=== PATIENT | female | born 1990 | race African-American/Black ===

== ENCOUNTER 2019-05-17 08:18 | Inpatient (IN) | payer OTHER ==
[~2019-05-17] VITALS: Ht 167.6 cm; Wt 105.2 kg
[2019-05-17] MEDS ORDERED: SODIUM CHLORIDE 0.9% 1,000 ML IV ONE (08:45)
[2019-05-17 09:13] LABS: BASOPHILS % (AUTO) 0.5 % (0.0-2.0); EOSINOPHILS % (AUTO) 0.3 % (1.0-6.0); HEMATOCRIT 40.9 % (36-46); HEMOGLOBIN 13.2 g/dL (12.0-16.0); LYMPHOCYTES # (AUTO) 1.4 K/uL (1.0-4.8); LYMPHOCYTES % (AUTO) 18.1 % (22.0-44.0); MEAN CORPUSCULAR HEMOGLOBIN 28.5 pg (26.0-34.0); MEAN CORPUSCULAR HGB CONC 32.2 G/dL (31.0-37.0); MEAN CORPUSCULAR VOLUME 89 fL (80-100); MONOCYTES # (AUTO) 0.6 K/uL (0.1-1.0); MONOCYTES % (AUTO) 7.3 % (2.0-9.0); NEUTROPHILS # (AUTO) 5.6 K/uL (1.8-7.7); NEUTROPHILS % (AUTO) 73.8 % (40.0-70.0); PLATELET COUNT (AUTO) 291 K/uL (150-450); RED BLOOD CELL COUNT(AUTO) 4.62 MIL/uL (4.00-5.20); RED CELL DISTRIBUTION WIDTH 16.9 % (11.5-14.5)
[2019-05-17 09:14] LABS: GLUCOSE,POINT OF CARE 105 MG/DL (70-110)
[2019-05-17 09:28] LABS: ANION GAP 25 mmol/L (8-16); CALCIUM, TOTAL 8.6 mg/dL (8.8-10.5); CARBON DIOXIDE 12 mmol/L (22-29); CHLORIDE 98 mmol/L (98-107); CREATININE 0.88 mg/dL (0.60-1.30); GLOMERULAR FILTR. RATE CALC > 60 mL/min (>60); GLUCOSE,RANDOM 85 mg/dL (70-110); POTASSIUM 3.3 mmol/L (3.5-5.1); SODIUM SERUM 135 mmol/L (136-145); UREA NITROGEN, BLOOD 6 mg/dL (7-18)
[2019-05-17 09:30] LABS: APPEARANCE,URINE CLEAR (CLEAR); BILIRUBIN,URINE NEGATIVE (NEGATIVE); GLUCOSE, URINE (UA) NEGATIVE (NEGATIVE); KETONES,URINE 15 mg/dL (NEGATIVE); LEUKOCYTE ESTERASE ,URINE NEGATIVE (NEGATIVE); NITRATE,URINE NEGATIVE (NEGATIVE); OCCULT BLOOD,URINE SMALL (NEGATIVE); PROTEIN,URINE POS 1+ (NEGATIVE); UROBILINOGEN,URINE 0.2 mg/dL (<=1.0)
[2019-05-17 09:34] LABS: AMPHET/METH SCREEN,URINE POSITIVE (NEGATIVE); BARBITURATE SCREEN, URINE NEGATIVE (NEGATIVE); BENZODIAZEPINES SCREEN,URINE NEGATIVE (NEGATIVE); CANNABINOID SCREEN,URINE NEGATIVE (NEGATIVE); COCAINE SCREEN,URINE NEGATIVE (NEGATIVE); METHADONE SCREEN, URINE NEGATIVE (NEGATIVE); OPIATE SCREEN,URINE NEGATIVE (NEGATIVE)
[2019-05-17 09:35] LABS: PHENCYCLIDINE SCREEN,URINE NEGATIVE (NEGATIVE)
[2019-05-17 09:39] LABS: ALANINE AMINOTRANSFERASE 62 U/L (12-78); ALBUMIN 3.7 g/dL (3.4-5.0); ALKALINE PHOSPHATASE 135 U/L (46-116); ASPARTATE AMINOTRANSFERASE 169 U/L (15-37); BILIRUBIN,TOTAL 0.2 mg/dL (0.1-1.0); HCG,QUANTITATIVE < 1 mIU/mL (0-6); TOTAL PROTEIN, SERUM 8.1 g/dL (6.4-8.2)
[2019-05-17 09:40] LABS: BACTERIA,URINE None Seen /HPF (None Seen); WBC,URINE None Seen /HPF (0-5)
[2019-05-17] MEDS ORDERED: LORazepam 2 MG/ML VIAL ONE (09:54)
[2019-05-17] MEDS ORDERED: LevETIRAcetam 1,500 MG in DEXTROSE 5%-WATER 100 ML IV ONE (10:00)
[2019-05-17] MEDS ORDERED: LORazepam 2 MG/ML VIAL IVP ONE (10:00)
[2019-05-17] MEDS ORDERED: 0.9% SODIUM CHLORIDE 10 ML SYRINGE IVP PRN (12:30)
[2019-05-17] MEDS ORDERED: ACETAMINOPHEN 325 MG TABLET PO PRN ×2 (12:30→13:15)
[2019-05-17] MEDS ORDERED: ONDANSETRON HCL 4 MG/2 ML VIAL IVP PRN ×2 (12:30→13:15)
[2019-05-17] MEDS ORDERED: MAGNESIUM HYDROXIDE SUSPENSION 30 ML UDCUP PO PRN (13:15)
[2019-05-17] MEDS ORDERED: HydrALAZINE HCL 20 MG/ML VIAL IVP PRN (13:15)
[2019-05-17] MEDS ORDERED: ZOLPIDEM TARTRATE 5 MG TABLET PO PRN (13:15)
[2019-05-17] MEDS ORDERED: HYDROCODONE/ACETAMINOPHEN 5-325 MG TABLET PO PRN (13:15)
[2019-05-17] MEDS ORDERED: MORPHINE SULFATE 2 MG/ML SYRINGE IVP PRN (13:15)
[2019-05-17] MEDS ORDERED: LORazepam 2 MG/ML VIAL IVP PRN (13:15)
[2019-05-17] MEDS ORDERED: BISACODYL 10 MG RECTAL RECTAL SUPPOSITORY PR PRN (13:15)
[2019-05-17 16:02] VITALS: BP 164/88
[2019-05-17] MEDS: HEPARIN SODIUM,PORCINE 5,000 UNITS/ML VIAL SQ SCH (17:14)
[2019-05-17] MEDS ORDERED: INFLUENZA VIRUS VACCINE QVS 2019-20 (3YR+)/PF 60 MCG/0.5 ML SYRINGE IM ONE (17:30)
[2019-05-17 20:08] VITALS: BP 162/117
[2019-05-17] MEDS ORDERED: LevETIRAcetam 500 MG TABLET PO SCH (21:00)
[2019-05-17] MEDS ORDERED: METOPROLOL TARTRATE 25 MG TABLET PO SCH (21:00)
[2019-05-17] MEDS ORDERED: DOCUSATE SODIUM 100 MG CAPSULE PO SCH (21:00)
[2019-05-17] MEDS ORDERED: LevETIRAcetam 750 MG in DEXTROSE 5%-WATER 100 ML IV SCH (22:00)
[2019-05-18 00:08] VITALS: BP 136/93
[2019-05-18] MEDS: HEPARIN SODIUM,PORCINE 5,000 UNITS/ML VIAL SQ SCH (00:08)
[2019-05-18 04:45] VITALS: BP 142/95
[2019-05-18] MEDS ORDERED: PANTOPRAZOLE SODIUM 40 MG DR TABLET PO SCH (09:00)
== END 2019-05-18 05:35 | disposition left against medical advice (07) | DRG 199 ==
LOC: EMS 08:21 → 5S 14:02
PROVIDERS: ADMIT Internal Medicine; ATTEND Internal Medicine
PROC: 4A00X4Z Measurement of Central Nervous Electrical Activity, External Approach (ICD-10-PCS; principal; 2019-05-18)
DX: I16.0 Hypertensive urgency (principal); G93.41 Metabolic encephalopathy; R56.9 Unspecified convulsions; F10.10 Alcohol abuse, uncomplicated; F15.10 Other stimulant abuse, uncomplicated; E87.6 Hypokalemia; Z79.899 Other long term (current) drug therapy; Z28.21 Immunization not carried out because of patient refusal; Z83.3 Family history of diabetes mellitus; Z82.49 Family history of ischemic heart disease and other diseases of the circulatory system; Z53.29 Procedure and treatment not carried out because of patient's decision for other reasons
CPT/HCPCS: 70450; 70551; 93005; 95816; 99291; G0480; J0712; J1644; J2060; J2405; J7060

== ENCOUNTER 2021-03-24 23:12 | Emergency (ER) | payer MEDICARE, OTHER ==
[~2021-03-24] VITALS: Ht 167.6 cm; Wt 104.5 kg
[2021-03-25] VITALS: BP 129/69
[2021-03-25] MEDS ORDERED: OLANZapine 5 MG TABLET PO ONE
[2021-03-25] MEDS ORDERED: IBUPROFEN 400 MG TABLET PO ONE
[2021-03-25] MEDS ORDERED: LORazepam 1 MG TABLET PO ONE
[2021-03-25 00:31] LABS: BASOPHILS % (AUTO) 1.1 % (0.0-2.0); EOSINOPHILS % (AUTO) 0.6 % (1.0-6.0); HEMATOCRIT 38.5 % (36-46); HEMOGLOBIN 12.3 g/dL (12.0-16.0); LYMPHOCYTES # (AUTO) 2.5 K/uL (1.0-4.8); LYMPHOCYTES % (AUTO) 15.1 % (22.0-44.0); MEAN CORPUSCULAR HEMOGLOBIN 25.1 pg (26.0-34.0); MEAN CORPUSCULAR HGB CONC 31.9 G/dL (31.0-37.0); MEAN CORPUSCULAR VOLUME 79 fL (80-100); MONOCYTES # (AUTO) 0.7 K/uL (0.1-1.0); MONOCYTES % (AUTO) 4.3 % (2.0-9.0); NEUTROPHILS # (AUTO) 13.2 K/uL (1.8-7.7); NEUTROPHILS % (AUTO) 78.9 % (40.0-70.0); PLATELET COUNT (AUTO) 546 K/uL (150-450); RED BLOOD CELL COUNT(AUTO) 4.88 MIL/uL (4.00-5.20); RED CELL DISTRIBUTION WIDTH 14.4 % (11.5-14.5)
[2021-03-25 00:42] LABS: ANION GAP 11 mmol/L (8-16); CALCIUM, TOTAL 9.4 mg/dL (8.8-10.5); CARBON DIOXIDE 27 mmol/L (22-29); CHLORIDE 102 mmol/L (98-107); GLOMERULAR FILTR. RATE CALC > 60 mL/min (>60); GLUCOSE,RANDOM 108 mg/dL (70-110); POTASSIUM 3.8 mmol/L (3.5-5.1); SODIUM SERUM 140 mmol/L (136-145); UREA NITROGEN, BLOOD 6 mg/dL (7-18)
[2021-03-25 00:46] LABS: ALANINE AMINOTRANSFERASE 40 U/L (12-78); ALBUMIN 3.6 g/dL (3.4-5.0); ALKALINE PHOSPHATASE 133 U/L (46-116); ASPARTATE AMINOTRANSFERASE 16 U/L (15-37); BILIRUBIN,TOTAL 0.1 mg/dL (0.1-1.0); TOTAL PROTEIN, SERUM 8.7 g/dL (6.4-8.2)
[2021-03-25 00:57] LABS: FREE T4 (FREE THYROXINE) 1.01 ng/dL (0.76-1.46); HCG,QUANTITATIVE 1 mIU/mL (0-6); THYROID STIMULATING HORMONE 1.68 uIU/mL (0.36-3.74)
== END 2021-03-25 | disposition home or self-care (01) ==
LOC: EMS 23:12
DX: R51.9 Headache, unspecified (principal); F41.9 Anxiety disorder, unspecified
CPT/HCPCS: 36415; 70450; 80053; 84439; 84443; 84702; 85025; 99284; G0480

== ENCOUNTER 2021-03-30 04:09 | Emergency (ER) | payer MEDICARE, OTHER ==
[~2021-03-30] VITALS: Ht 167.6 cm; Wt 100.0 kg
[2021-03-30 04:29] LABS: GLUCOSE,POINT OF CARE 177 MG/DL (70-110)
[2021-03-30] MEDS ORDERED: LORazepam 1 MG TABLET PO ONE (05:00)
[2021-03-30 06:08] VITALS: BP 147/93
== END 2021-03-30 06:15 | disposition home or self-care (01) ==
LOC: EMS 04:12
DX: F41.9 Anxiety disorder, unspecified (principal); F15.10 Other stimulant abuse, uncomplicated; F32.9 Major depressive disorder, single episode, unspecified; F20.9 Schizophrenia, unspecified
CPT/HCPCS: 82962; 99283

== ENCOUNTER 2021-04-24 02:32 | Emergency (ER) | payer MEDICARE, OTHER ==
[~2021-04-24] VITALS: Ht 167.6 cm; Wt 100.0 kg
[2021-04-24 02:37] VITALS: BP 156/89
[2021-04-24] MEDS ORDERED: ESCI-8 PO (02:43)
[2021-04-24] MEDS ORDERED: OLAN10TA74 PO (02:43)
[2021-04-24] MEDS ORDERED: LORazepam 2 MG TABLET PO ONE (03:15)
== END 2021-04-24 04:23 | disposition home or self-care (01) ==
LOC: EMS 02:35
DX: F41.9 Anxiety disorder, unspecified (principal); F20.9 Schizophrenia, unspecified
CPT/HCPCS: 82962; 99283

== ENCOUNTER 2021-04-24 07:29 | Emergency (ER) | payer MEDICARE, OTHER ==
[~2021-04-24] VITALS: Ht 198.1 cm; Wt 100.0 kg
[~2021-04-24 07:29] MED LIST: ESCI-8 PO; OLAN10TA74 PO
[2021-04-24 07:55] VITALS: BP 159/105
== END 2021-04-24 08:45 | disposition home or self-care (01) ==
LOC: EMS 07:32
DX: F41.9 Anxiety disorder, unspecified (principal); E11.9 Type 2 diabetes mellitus without complications; I10 Essential (primary) hypertension; F20.9 Schizophrenia, unspecified
CPT/HCPCS: 99283

== ENCOUNTER 2021-06-19 05:19 | Emergency (ER) | payer OTHER ==
[~2021-06-19] VITALS: Ht 172.7 cm; Wt 111.4 kg
[2021-06-19 06:22] VITALS: BP 141/91
== END 2021-06-19 06:27 | disposition home or self-care (01) ==
LOC: EMS 05:21
DX: F20.9 Schizophrenia, unspecified (principal); I10 Essential (primary) hypertension; E11.9 Type 2 diabetes mellitus without complications; F41.9 Anxiety disorder, unspecified; F17.210 Nicotine dependence, cigarettes, uncomplicated; Z88.8 Allergy status to other drugs, medicaments and biological substances; Z79.899 Other long term (current) drug therapy
CPT/HCPCS: 93005; 99283; 99284

== ENCOUNTER 2021-06-30 00:37 | Emergency (ER) | payer OTHER ==
[~2021-06-30] VITALS: Ht 167.6 cm; Wt 97.7 kg
[2021-06-30] MEDS ORDERED: LORazepam 1 MG TABLET PO ONE (01:45)
[2021-06-30 01:58] VITALS: BP 160/95
== END 2021-06-30 02:06 | disposition home or self-care (01) ==
LOC: EMS 00:38
DX: F41.9 Anxiety disorder, unspecified (principal); R06.02 Shortness of breath; E11.9 Type 2 diabetes mellitus without complications; I10 Essential (primary) hypertension; F20.9 Schizophrenia, unspecified; F17.210 Nicotine dependence, cigarettes, uncomplicated; Z88.8 Allergy status to other drugs, medicaments and biological substances
CPT/HCPCS: 99283

== ENCOUNTER 2021-07-08 00:25 | Emergency (ER) | payer OTHER ==
[~2021-07-08] VITALS: Ht 167.6 cm; Wt 104.5 kg
[2021-07-08 00:46] VITALS: BP 153/94
[2021-07-08] MEDS ORDERED: LORazepam 1 MG TABLET PO ONE (01:00)
== END 2021-07-08 04:02 | disposition home or self-care (01) ==
LOC: EMS 00:28
DX: F41.9 Anxiety disorder, unspecified (principal); I10 Essential (primary) hypertension; E11.9 Type 2 diabetes mellitus without complications; F20.9 Schizophrenia, unspecified; F17.210 Nicotine dependence, cigarettes, uncomplicated; Z88.8 Allergy status to other drugs, medicaments and biological substances; Z79.899 Other long term (current) drug therapy
CPT/HCPCS: 99283

== ENCOUNTER 2021-07-10 04:31 | Emergency (ER) | payer OTHER ==
[~2021-07-10] VITALS: Ht 167.6 cm; Wt 100.0 kg
[2021-07-10] MEDS ORDERED: HYDR-4584 PO (04:41)
[2021-07-10 05:45] LABS: EOSINOPHILS % (AUTO) 1.4 % (1.0-6.0); HEMATOCRIT 34.6 % (36-46); HEMOGLOBIN 11.2 g/dL (12.0-16.0); LYMPHOCYTES # (AUTO) 2.3 K/uL (1.0-4.8); LYMPHOCYTES % (AUTO) 25.7 % (22.0-44.0); MEAN CORPUSCULAR HEMOGLOBIN 24.5 pg (26.0-34.0); MEAN CORPUSCULAR HGB CONC 32.4 G/dL (31.0-37.0); MEAN CORPUSCULAR VOLUME 76 fL (80-100); MONOCYTES # (AUTO) 0.6 K/uL (0.1-1.0); MONOCYTES % (AUTO) 7.1 % (2.0-9.0); NEUTROPHILS # (AUTO) 5.8 K/uL (1.8-7.7); NEUTROPHILS % (AUTO) 64.8 % (40.0-70.0); PLATELET COUNT (AUTO) 385 K/uL (150-450); RED BLOOD CELL COUNT(AUTO) 4.57 MIL/uL (4.00-5.20); RED CELL DISTRIBUTION WIDTH 18.9 % (11.5-14.5)
[2021-07-10 05:56] LABS: ANION GAP 10 mmol/L (8-16); CALCIUM, TOTAL 8.9 mg/dL (8.8-10.5); CARBON DIOXIDE 29 mmol/L (22-29); CHLORIDE 103 mmol/L (98-107); CREATININE 0.69 mg/dL (0.60-1.30); GLOMERULAR FILTR. RATE CALC > 60 mL/min (>60); GLUCOSE,RANDOM 156 mg/dL (70-110); POTASSIUM 3.7 mmol/L (3.5-5.1); SODIUM SERUM 142 mmol/L (136-145); UREA NITROGEN, BLOOD 9 mg/dL (7-18)
[2021-07-10 06:06] LABS: ALANINE AMINOTRANSFERASE 38 U/L (12-78); ALBUMIN 3.6 g/dL (3.4-5.0); ALKALINE PHOSPHATASE 147 U/L (46-116); ASPARTATE AMINOTRANSFERASE 39 U/L (15-37); BILIRUBIN,TOTAL 0.1 mg/dL (0.1-1.0); HCG,QUANTITATIVE < 1 mIU/mL (0-6); TOTAL PROTEIN, SERUM 8.6 g/dL (6.4-8.2)
[2021-07-10 07:22] VITALS: BP 125/79
== END 2021-07-10 08:01 | disposition home or self-care (01) ==
LOC: EMS 04:33
DX: F41.9 Anxiety disorder, unspecified (principal); I10 Essential (primary) hypertension; E11.9 Type 2 diabetes mellitus without complications; F20.9 Schizophrenia, unspecified; F17.210 Nicotine dependence, cigarettes, uncomplicated; Z88.8 Allergy status to other drugs, medicaments and biological substances; Z79.899 Other long term (current) drug therapy
CPT/HCPCS: 71045; 80053; 84484; 84702; 85025; 93005; 99285; 36415-L1; 36415-TC

== ENCOUNTER 2021-09-22 04:29 | Emergency (ER) | payer OTHER ==
[~2021-09-22] VITALS: Ht 167.6 cm; Wt 113.1 kg
[~2021-09-22 04:29] MED LIST changes: +HYDR-4584 PO
[2021-09-22 04:39] VITALS: BP 124/94
[2021-09-22] MEDS ORDERED: ARIP5TAB37 PO (04:46)
[2021-09-22] MEDS ORDERED: LORazepam 1 MG TABLET PO ONE (05:30)
== END 2021-09-22 05:52 | disposition home or self-care (01) ==
LOC: EMS 04:30
DX: F41.9 Anxiety disorder, unspecified (principal); I10 Essential (primary) hypertension; E11.9 Type 2 diabetes mellitus without complications; F20.9 Schizophrenia, unspecified; Z88.8 Allergy status to other drugs, medicaments and biological substances; Z79.899 Other long term (current) drug therapy
CPT/HCPCS: 99283

== ENCOUNTER 2021-10-02 01:23 | Emergency (ER) | payer OTHER ==
[~2021-10-02] VITALS: Ht 167.6 cm; Wt 97.7 kg
[~2021-10-02 01:23] MED LIST changes: +ARIP5TAB37 PO
[2021-10-02] MEDS ORDERED: NALT50TA6 PO (02:37)
[2021-10-02] MEDS ORDERED: ARIP10TA38 PO (02:37)
[2021-10-02 02:46] LABS: GLUCOSE,POINT OF CARE 116 MG/DL (70-110)
[2021-10-02] MEDS ORDERED: IBUP-2070 PO (04:21)
[2021-10-02] MEDS ORDERED: AMOX500C2 PO (04:21)
[2021-10-02] MEDS ORDERED: IBUPROFEN 600 MG TABLET PO ONE (04:30)
[2021-10-02] MEDS ORDERED: AMOXICILLIN TRIHYDRATE 250 MG CAPSULE PO ONE (04:30)
[2021-10-02 04:50] VITALS: BP 135/88
== END 2021-10-02 04:53 | disposition home or self-care (01) ==
LOC: EMS 01:24
DX: H66.91 Otitis media, unspecified, right ear (principal); F41.9 Anxiety disorder, unspecified; E11.9 Type 2 diabetes mellitus without complications; I10 Essential (primary) hypertension; F20.9 Schizophrenia, unspecified; G35 Multiple sclerosis; Z88.8 Allergy status to other drugs, medicaments and biological substances
CPT/HCPCS: 82962; 99283

== ENCOUNTER 2021-12-23 01:01 | Emergency (ER) | payer MEDICARE, OTHER ==
[~2021-12-23] VITALS: Ht 167.6 cm; Wt 113.0 kg
[~2021-12-23 01:01] MED LIST changes: +AMOX500C2 PO; +ARIP10TA38 PO; -ARIP5TAB37 PO; +IBUP-2070 PO; +NALT50TA6 PO
[2021-12-23 02:50] VITALS: BP 142/82
== END 2021-12-23 04:31 | disposition left against medical advice (07) ==
LOC: EMS 01:02
DX: F41.9 Anxiety disorder, unspecified (principal); Z53.21 Procedure and treatment not carried out due to patient leaving prior to being seen by health care provider
CPT/HCPCS: 93005

== ENCOUNTER 2021-12-24 19:19 | Emergency (ER) | payer MEDICARE, OTHER ==
[~2021-12-24] VITALS: Ht 167.6 cm; Wt 113.0 kg
[2021-12-24 21:43] LABS: BASOPHILS % (AUTO) 0.8 % (0.0-2.0); EOSINOPHILS % (AUTO) 0.7 % (1.0-6.0); HEMATOCRIT 36.4 % (36-46); HEMOGLOBIN 11.8 g/dL (12.0-16.0); LYMPHOCYTES # (AUTO) 2.8 K/uL (1.0-4.8); LYMPHOCYTES % (AUTO) 18.3 % (22.0-44.0); MEAN CORPUSCULAR HEMOGLOBIN 25.1 pg (26.0-34.0); MEAN CORPUSCULAR HGB CONC 32.5 G/dL (31.0-37.0); MEAN CORPUSCULAR VOLUME 77 fL (80-100); MONOCYTES % (AUTO) 6.3 % (2.0-9.0); NEUTROPHILS # (AUTO) 11.2 K/uL (1.8-7.7); NEUTROPHILS % (AUTO) 73.9 % (40.0-70.0); PLATELET COUNT (AUTO) 441 K/uL (150-450); RED BLOOD CELL COUNT(AUTO) 4.72 MIL/uL (4.00-5.20); RED CELL DISTRIBUTION WIDTH 15.1 % (11.5-14.5)
[2021-12-24 21:55] LABS: ANION GAP 10 mmol/L (8-16); CALCIUM, TOTAL 9.4 mg/dL (8.8-10.5); CARBON DIOXIDE 27 mmol/L (22-29); CHLORIDE 94 mmol/L (98-107); CREATININE 0.74 mg/dL (0.60-1.30); GLUCOSE,RANDOM 185 mg/dL (70-110); POTASSIUM 3.8 mmol/L (3.5-5.1); SODIUM SERUM 131 mmol/L (136-145); UREA NITROGEN, BLOOD 7 mg/dL (7-18)
[2021-12-24 22:01] LABS: GLOMERULAR FILTR. RATE CALC > 60 mL/min (>60)
[2021-12-24 22:14] LABS: ALANINE AMINOTRANSFERASE 26 U/L (12-78); ALBUMIN 3.8 g/dL (3.4-5.0); ALKALINE PHOSPHATASE 145 U/L (46-116); ASPARTATE AMINOTRANSFERASE 12 U/L (15-37); BILIRUBIN,TOTAL 0.2 mg/dL (0.1-1.0); HCG,QUANTITATIVE < 1 mIU/mL (0-6); TOTAL PROTEIN, SERUM 8.8 g/dL (6.4-8.2)
[2021-12-25 01:45] VITALS: BP 139/87
== END 2021-12-25 03:00 | disposition home or self-care (01) ==
LOC: EMS 19:20
DX: F41.9 Anxiety disorder, unspecified (principal); F32.9 Major depressive disorder, single episode, unspecified; F20.9 Schizophrenia, unspecified; F15.90 Other stimulant use, unspecified, uncomplicated; Z88.8 Allergy status to other drugs, medicaments and biological substances; Z79.899 Other long term (current) drug therapy
CPT/HCPCS: 80053; 84702; 85025; 99283

== ENCOUNTER 2021-12-29 02:43 | Emergency (ER) | payer MEDICARE, OTHER ==
[2021-12-29] MEDS ORDERED: LORazepam 1 MG TABLET PO ONE (04:15)
[2021-12-29 04:44] VITALS: BP 143/91
== END 2021-12-29 04:49 | disposition home or self-care (01) ==
LOC: EMS 02:44
DX: F41.9 Anxiety disorder, unspecified (principal); E66.01 Morbid (severe) obesity due to excess calories; F20.9 Schizophrenia, unspecified; F32.9 Major depressive disorder, single episode, unspecified; F15.90 Other stimulant use, unspecified, uncomplicated; Z86.69 Personal history of other diseases of the nervous system and sense organs; Z88.8 Allergy status to other drugs, medicaments and biological substances
CPT/HCPCS: 93005; 99283

== ENCOUNTER 2021-12-31 03:50 | Emergency (ER) | payer MEDICARE, OTHER ==
[~2021-12-31] VITALS: Ht 167.6 cm; Wt 113.0 kg
[~2021-12-31 03:50] MED LIST changes: -OLAN10TA74 PO
[2021-12-31] MEDS ORDERED: KETOROLAC TROMETHAMINE 30 MG/ML VIAL IVP ONE (04:00)
[2021-12-31] MEDS ORDERED: ONDANSETRON HCL 4 MG/2 ML VIAL IVP ONE (04:00)
[2021-12-31] MEDS ORDERED: FAMOTIDINE 10 MG/ML 2 ML VIAL IVP ONE (04:00)
[2021-12-31] MEDS ORDERED: SODIUM CHLORIDE 0.9% 1,000 ML IV ONE ×3 (04:00→08:30)
[2021-12-31] MEDS ORDERED: IOHEXOL 350 MG/ML 100 ML VIAL ONE (04:51)
[2021-12-31] MEDS ORDERED: SODIUM CHLORIDE 0.9% 100 ML ONE (04:51)
[2021-12-31 05:07] LABS: BASOPHILS % (AUTO) 0.5 % (0.0-2.0); EOSINOPHILS % (AUTO) 0.4 % (1.0-6.0); HEMATOCRIT 34.9 % (36-46); HEMOGLOBIN 11.4 g/dL (12.0-16.0); LYMPHOCYTES # (AUTO) 1.9 K/uL (1.0-4.8); LYMPHOCYTES % (AUTO) 21.8 % (22.0-44.0); MEAN CORPUSCULAR HEMOGLOBIN 24.9 pg (26.0-34.0); MEAN CORPUSCULAR HGB CONC 32.7 G/dL (31.0-37.0); MEAN CORPUSCULAR VOLUME 76 fL (80-100); MONOCYTES # (AUTO) 0.7 K/uL (0.1-1.0); MONOCYTES % (AUTO) 7.4 % (2.0-9.0); NEUTROPHILS # (AUTO) 6.2 K/uL (1.8-7.7); NEUTROPHILS % (AUTO) 69.9 % (40.0-70.0); PLATELET COUNT (AUTO) 348 K/uL (150-450); RED BLOOD CELL COUNT(AUTO) 4.58 MIL/uL (4.00-5.20); RED CELL DISTRIBUTION WIDTH 14.5 % (11.5-14.5)
[2021-12-31 05:30] LABS: LACTIC ACID 2.7 mmol/L (0.4-2.0)
[2021-12-31 05:31] LABS: ALANINE AMINOTRANSFERASE 30 U/L (12-78); ALBUMIN 3.4 g/dL (3.4-5.0); ALKALINE PHOSPHATASE 122 U/L (46-116); ASPARTATE AMINOTRANSFERASE 20 U/L (15-37); BILIRUBIN,TOTAL 0.2 mg/dL (0.1-1.0); CALCIUM, TOTAL 9.2 mg/dL (8.8-10.5); CARBON DIOXIDE 26 mmol/L (22-29); CREATININE 0.83 mg/dL (0.60-1.30); GLUCOSE,RANDOM 304 mg/dL (70-110); HCG,QUANTITATIVE < 1 mIU/mL (0-6); LIPASE 46 U/L (73-393); TOTAL PROTEIN, SERUM 7.9 g/dL (6.4-8.2); UREA NITROGEN, BLOOD 9 mg/dL (7-18)
[2021-12-31 05:36] LABS: GLOMERULAR FILTR. RATE CALC > 60 mL/min (>60)
[2021-12-31 05:40] LABS: ANION GAP 11 mmol/L (8-16); CHLORIDE 95 mmol/L (98-107); POTASSIUM 3.8 mmol/L (3.5-5.1); SODIUM SERUM 132 mmol/L (136-145)
[2021-12-31] MEDS ORDERED: METF-81 PO (11:19)
[2021-12-31 11:45] VITALS: BP 133/86
== END 2021-12-31 12:08 | disposition home or self-care (01) ==
LOC: EMS 03:50
DX: R10.30 Lower abdominal pain, unspecified (principal); E11.65 Type 2 diabetes mellitus with hyperglycemia; E66.01 Morbid (severe) obesity due to excess calories; F32.9 Major depressive disorder, single episode, unspecified; F41.9 Anxiety disorder, unspecified; F15.90 Other stimulant use, unspecified, uncomplicated; N83.202 Unspecified ovarian cyst, left side; N83.201 Unspecified ovarian cyst, right side; R11.0 Nausea
CPT/HCPCS: 99285; 74177; 96374; 96361; 76830; 76856; 96375; 80053; 83036; 83605; 83690; 84702; 85025; 36415; G0480; J3490; J1885; J2405; Q9967; J7030; J7050

== ENCOUNTER 2022-01-21 00:33 | Emergency (ER) | payer MEDICARE, OTHER ==
[~2022-01-21] VITALS: Ht 167.6 cm; Wt 99.1 kg
[~2022-01-21 00:33] MED LIST changes: +METF-81 PO
[2022-01-21] MEDS ORDERED: LORazepam 1 MG TABLET PO ONE (03:15)
[2022-01-21 04:40] VITALS: BP 131/74
== END 2022-01-21 05:49 | disposition home or self-care (01) ==
LOC: EMS 00:34
DX: F41.9 Anxiety disorder, unspecified (principal); E66.01 Morbid (severe) obesity due to excess calories; F32.9 Major depressive disorder, single episode, unspecified; E11.9 Type 2 diabetes mellitus without complications; F20.9 Schizophrenia, unspecified; F15.10 Other stimulant abuse, uncomplicated
CPT/HCPCS: 82962; 93005; 99283

== ENCOUNTER 2022-01-24 04:58 | Emergency (ER) | payer MEDICARE, OTHER ==
[~2022-01-24] VITALS: Ht 167.6 cm; Wt 100.0 kg
[2022-01-24 05:09] VITALS: BP 159/103
== END 2022-01-24 06:38 | disposition left against medical advice (07) ==
LOC: EMS 05:00
DX: Z53.21 Procedure and treatment not carried out due to patient leaving prior to being seen by health care provider (principal)

== ENCOUNTER 2022-01-26 07:25 | Emergency (ER) | payer MEDICARE, OTHER ==
[~2022-01-26] VITALS: Ht 167.6 cm; Wt 99.1 kg
[2022-01-26 07:45] LABS: GLUCOSE,POINT OF CARE 223 MG/DL (70-110)
[2022-01-26] MEDS ORDERED: SODIUM CHLORIDE 0.9% 1,000 ML IV ONE ×2 (07:45→08:30)
[2022-01-26] MEDS ORDERED: LORazepam 2 MG/ML VIAL IVP ONE (07:45)
[2022-01-26 08:02] LABS: BASOPHILS % (AUTO) 0.8 % (0.0-2.0); EOSINOPHILS % (AUTO) 0.4 % (1.0-6.0); HEMATOCRIT 33.8 % (36-46); LYMPHOCYTES # (AUTO) 2.5 K/uL (1.0-4.8); LYMPHOCYTES % (AUTO) 21.9 % (22.0-44.0); MEAN CORPUSCULAR HGB CONC 32.4 G/dL (31.0-37.0); MEAN CORPUSCULAR VOLUME 80 fL (80-100); MONOCYTES # (AUTO) 0.7 K/uL (0.1-1.0); MONOCYTES % (AUTO) 6.2 % (2.0-9.0); NEUTROPHILS # (AUTO) 8.1 K/uL (1.8-7.7); NEUTROPHILS % (AUTO) 70.7 % (40.0-70.0); PLATELET COUNT (AUTO) 357 K/uL (150-450); RED BLOOD CELL COUNT(AUTO) 4.23 MIL/uL (4.00-5.20); RED CELL DISTRIBUTION WIDTH 15.4 % (11.5-14.5)
[2022-01-26 08:13] LABS: ANION GAP 10 mmol/L (8-16); CALCIUM, TOTAL 9.4 mg/dL (8.8-10.5); CARBON DIOXIDE 27 mmol/L (22-29); CHLORIDE 99 mmol/L (98-107); CREATININE 0.52 mg/dL (0.60-1.30); GLUCOSE,RANDOM 215 mg/dL (70-110); POTASSIUM 3.5 mmol/L (3.5-5.1); SODIUM SERUM 136 mmol/L (136-145); UREA NITROGEN, BLOOD 5 mg/dL (7-18)
[2022-01-26 08:15] LABS: GLOMERULAR FILTR. RATE CALC > 60 mL/min (>60)
[2022-01-26 12:56] VITALS: BP 140/88
[2022-01-26] MEDS ORDERED: ESCI20TA87 PO (13:17)
== END 2022-01-26 12:56 | disposition home or self-care (01) ==
LOC: EMS 07:30
DX: R07.89 Other chest pain (principal); F41.9 Anxiety disorder, unspecified; F32.9 Major depressive disorder, single episode, unspecified; E11.9 Type 2 diabetes mellitus without complications; F20.9 Schizophrenia, unspecified; F15.90 Other stimulant use, unspecified, uncomplicated; Z88.6 Allergy status to analgesic agent; Z88.8 Allergy status to other drugs, medicaments and biological substances
CPT/HCPCS: 99285; 96374; 71045; 96361; 80048; 82962; 84484; 85025; 93005; J2060; J7030; 36415-L1; 36415-TC

== ENCOUNTER 2022-08-24 16:17 | Emergency (ER) | payer MEDICARE, OTHER ==
[~2022-08-24] VITALS: Ht 162.6 cm; Wt 90.9 kg
[~2022-08-24 16:17] MED LIST changes: -AMOX500C2 PO; -ESCI-8 PO; +ESCI20TA87 PO; -IBUP-2070 PO
[2022-08-24 16:25] VITALS: BP 156/112
[2022-08-24 16:52] LABS: BASOPHILS % (AUTO) 0.6 % (0.0-2.0); EOSINOPHILS % (AUTO) 0.4 % (1.0-6.0); HEMATOCRIT 36.3 % (36-46); HEMOGLOBIN 11.5 g/dL (12.0-16.0); LYMPHOCYTES # (AUTO) 2.3 K/uL (1.0-4.8); LYMPHOCYTES % (AUTO) 17.4 % (22.0-44.0); MEAN CORPUSCULAR HEMOGLOBIN 23.7 pg (26.0-34.0); MEAN CORPUSCULAR HGB CONC 31.6 G/dL (31.0-37.0); MEAN CORPUSCULAR VOLUME 75 fL (80-100); MONOCYTES # (AUTO) 0.9 K/uL (0.1-1.0); MONOCYTES % (AUTO) 6.4 % (2.0-9.0); NEUTROPHILS # (AUTO) 10.1 K/uL (1.8-7.7); NEUTROPHILS % (AUTO) 75.2 % (40.0-70.0); PLATELET COUNT (AUTO) 447 K/uL (150-450); RED BLOOD CELL COUNT(AUTO) 4.85 MIL/uL (4.00-5.20); RED CELL DISTRIBUTION WIDTH 17.5 % (11.5-14.5)
[2022-08-24 17:00] LABS: ANION GAP 11 mmol/L (8-16); CARBON DIOXIDE 26 mmol/L (22-29); CHLORIDE 101 mmol/L (98-107); CREATININE 0.67 mg/dL (0.60-1.30); GLOMERULAR FILTR. RATE CALC > 60 mL/min (>60); GLUCOSE,RANDOM 111 mg/dL (70-110); POTASSIUM 3.9 mmol/L (3.5-5.1); SODIUM SERUM 138 mmol/L (136-145); UREA NITROGEN, BLOOD 8 mg/dL (7-18)
[2022-08-24] MEDS ORDERED: LORazepam 1 MG TABLET PO ONE (17:00)
[2022-08-24 17:08] LABS: ALANINE AMINOTRANSFERASE 26 U/L (12-78); ALBUMIN 3.7 g/dL (3.4-5.0); ALKALINE PHOSPHATASE 120 U/L (46-116); ASPARTATE AMINOTRANSFERASE 24 U/L (15-37); BILIRUBIN,TOTAL 0.2 mg/dL (0.1-1.0); TOTAL PROTEIN, SERUM 8.2 g/dL (6.4-8.2)
[2022-08-24] MEDS ORDERED: ARIP10TA8 PO (17:50)
== END 2022-08-24 18:03 | disposition home or self-care (01) ==
LOC: EMS 16:18
DX: F41.9 Anxiety disorder, unspecified (principal); F32.A Depression, unspecified; E11.9 Type 2 diabetes mellitus without complications; F20.9 Schizophrenia, unspecified; F15.90 Other stimulant use, unspecified, uncomplicated; Z88.8 Allergy status to other drugs, medicaments and biological substances; Z91.14 Patient's other noncompliance with medication regimen
CPT/HCPCS: 99283; 80053; 85025; G0480

== ENCOUNTER 2022-09-07 21:44 | Inpatient (IN) | payer MEDICARE, OTHER ==
[~2022-09-07] VITALS: Ht 170.2 cm; Wt 97.2 kg
[~2022-09-07 21:44] MED LIST changes: +ARIP10TA8 PO
[2022-09-07] MEDS ORDERED: IOHEXOL 350 MG/ML 100 ML VIAL ONE (21:50)
[2022-09-07] MEDS ORDERED: SODIUM CHLORIDE 0.9% 100 ML ONE (21:50)
[2022-09-07 22:00] LABS: GLUCOMETER DEV NAME(LOC) ERT.5; GLUCOSE,POINT OF CARE 148 MG/DL (70-110)
[2022-09-07 22:20] LABS: BASOPHILS % (AUTO) 0.7 % (0.0-2.0); EOSINOPHILS % (AUTO) 0.4 % (1.0-6.0); HEMATOCRIT 36.5 % (36-46); HEMOGLOBIN 11.4 g/dL (12.0-16.0); LYMPHOCYTES # (AUTO) 2.7 K/uL (1.0-4.8); LYMPHOCYTES % (AUTO) 18.3 % (22.0-44.0); MEAN CORPUSCULAR HEMOGLOBIN 23.2 pg (26.0-34.0); MEAN CORPUSCULAR HGB CONC 31.2 G/dL (31.0-37.0); MEAN CORPUSCULAR VOLUME 74 fL (80-100); MONOCYTES # (AUTO) 0.7 K/uL (0.1-1.0); MONOCYTES % (AUTO) 4.8 % (2.0-9.0); NEUTROPHILS # (AUTO) 11.3 K/uL (1.8-7.7); NEUTROPHILS % (AUTO) 75.8 % (40.0-70.0); PLATELET COUNT (AUTO) 517 K/uL (150-450); RED CELL DISTRIBUTION WIDTH 16.8 % (11.5-14.5)
[2022-09-07 22:29] LABS: INR 1.1 (0.9-1.1); PROTHROMBIN TIME 11.4 SEC (9.4-11.6)
[2022-09-07 22:39] LABS: ANION GAP 14 mmol/L (8-16); CALCIUM, TOTAL 9.6 mg/dL (8.8-10.5); CARBON DIOXIDE 25 mmol/L (22-29); CHLORIDE 99 mmol/L (98-107); CREATININE 0.66 mg/dL (0.60-1.30); GLOMERULAR FILTR. RATE CALC > 60 mL/min (>60); GLUCOSE,RANDOM 153 mg/dL (70-110); POTASSIUM 3.3 mmol/L (3.5-5.1); SODIUM SERUM 138 mmol/L (136-145); UREA NITROGEN, BLOOD 6 mg/dL (7-18)
[2022-09-07 22:43] LABS: ALANINE AMINOTRANSFERASE 24 U/L (12-78); ALBUMIN 3.8 g/dL (3.4-5.0); ALKALINE PHOSPHATASE 115 U/L (46-116); ASPARTATE AMINOTRANSFERASE 13 U/L (15-37); BILIRUBIN,TOTAL 0.2 mg/dL (0.1-1.0); TOTAL PROTEIN, SERUM 8.4 g/dL (6.4-8.2)
[2022-09-07] MEDS ORDERED: LORazepam 1 MG TABLET PO ONE (23:00)
[2022-09-07] MEDS ORDERED: DiphenhydrAMINE HCL 50 MG/ML VIAL IM ONE (23:30)
[2022-09-07] MEDS ORDERED: HALOPERIDOL LACTATE 5 MG/ML VIAL IM ONE (23:30)
[2022-09-07] MEDS ORDERED: LORazepam 2 MG/ML VIAL IM ONE (23:30)
[2022-09-08] MEDS ORDERED: LORazepam 2 MG TABLET PO PRN (02:15)
[2022-09-08] MEDS ORDERED: OLANZapine 5 MG RAPDIS TABLET PO PRN (02:15)
[2022-09-08] MEDS ORDERED: ZOLPIDEM TARTRATE 10 MG TABLET PO PRN (02:15)
[2022-09-08 03:02] LABS: COVID AG,FIA SOURCE NASOPHARYNGEAL
[2022-09-08 05:01] VITALS: BP 136/86
[2022-09-08 10:58] VITALS: BP 133/89
[2022-09-08] MEDS ORDERED: TUBERCULIN, PURIFIED PROTEIN DERIVATIVE 5 TU/0.1 ML SYRINGE ID ONE (11:30)
[2022-09-08] MEDS ORDERED: HydrOXYzine PAMOATE 50 MG CAPSULE PO PRN (11:30)
[2022-09-08] MEDS ORDERED: LOPERAMIDE HCL 2 MG CAPSULE PO PRN (11:30)
[2022-09-08] MEDS ORDERED: GuaiFENesin/D-METHORPHAN [SUGAR-FREE] 200-20MG/10 ML SYRUP UDCUP PO PRN (11:30)
[2022-09-08] MEDS ORDERED: MAGNESIUM HYDROXIDE SUSPENSION 30 ML UDCUP PO PRN (11:30)
[2022-09-08] MEDS ORDERED: MAG HYDROX/AL HYDROX/SIMETH ES 30 ML SUSPENSION UDCUP PO PRN (11:30)
[2022-09-08] MEDS ORDERED: PROMETHAZINE HCL 25 MG TABLET PO PRN (11:30)
[2022-09-08] MEDS ORDERED: ACETAMINOPHEN 325 MG TABLET PO PRN (11:30)
[2022-09-08] MEDS: THIAMINE 100 MG TABLET PO SCH (18:12)
[2022-09-08 20:30] VITALS: BP 108/70
[2022-09-08] MEDS: MELATONIN 5 MG TABLET PO SCH (21:26)
[2022-09-08] MEDS: OLANZapine 5 MG RAPDIS TABLET PO SCH (21:27)
[2022-09-09 06:55] LABS: ANION GAP 7 mmol/L (8-16); CALCIUM, TOTAL 9.5 mg/dL (8.8-10.5); CARBON DIOXIDE 30 mmol/L (22-29); CHLORIDE 102 mmol/L (98-107); CREATININE 0.69 mg/dL (0.60-1.30); GLOMERULAR FILTR. RATE CALC > 60 mL/min (>60); GLUCOSE,RANDOM 141 mg/dL (70-110); POTASSIUM 4.3 mmol/L (3.5-5.1); SODIUM SERUM 139 mmol/L (136-145); UREA NITROGEN, BLOOD 11 mg/dL (7-18)
[2022-09-09 06:57] LABS: HEMOGLOBIN A1C 7.3 % (3.8-5.6)
[2022-09-09 07:08] LABS: CHOL/HDL RATIO 4.1 (3.9-5.7); FREE T4 (FREE THYROXINE) 1.19 ng/dL (0.76-1.46); THYROID STIMULATING HORMONE 1.92 uIU/mL (0.36-3.74)
[2022-09-09] MEDS: MULTIVITAMINS WITH MINERALS, THERAPEUTIC TABLET PO SCH (09:19)
[2022-09-09] MEDS: NALTREXONE HCL 50 MG TABLET PO SCH (09:20)
[2022-09-09] MEDS: OMEGA-3/DHA/EPA/FISH OIL 1,000 MG CAPSULE PO SCH (09:20)
[2022-09-09] MEDS: THIAMINE 100 MG TABLET PO SCH ×2 (09:20→17:06)
[2022-09-09] MEDS: FOLIC ACID 1 MG TABLET PO SCH (09:21)
[2022-09-09 09:57] VITALS: BP 99/60
[2022-09-09] MEDS: MELATONIN 5 MG TABLET PO SCH (21:18)
[2022-09-09] MEDS: OLANZapine 5 MG RAPDIS TABLET PO SCH (21:18)
[2022-09-10] MEDS: NALTREXONE HCL 50 MG TABLET PO SCH (08:39)
[2022-09-10] MEDS: OMEGA-3/DHA/EPA/FISH OIL 1,000 MG CAPSULE PO SCH (08:39)
[2022-09-10] MEDS: THIAMINE 100 MG TABLET PO SCH ×2 (08:39→15:57)
[2022-09-10] MEDS: FOLIC ACID 1 MG TABLET PO SCH (08:40)
[2022-09-10] MEDS: MULTIVITAMINS WITH MINERALS, THERAPEUTIC TABLET PO SCH (08:41)
[2022-09-10 09:43] VITALS: BP 101/60
[2022-09-10 17:15] VITALS: BP 99/69
[2022-09-10] MEDS: MELATONIN 5 MG TABLET PO SCH (20:54)
[2022-09-10 20:57] VITALS: BP 113/76
[2022-09-10] MEDS ORDERED: OLANZapine 10 MG RAPDIS TABLET PO SCH (21:00)
[2022-09-10] MEDS ORDERED: MELA5TAB40 PO (21:08)
[2022-09-10] MEDS ORDERED: OLAN10TA26 PO (21:08)
[2022-09-10] MEDS ORDERED: NALT50TA PO (21:08)
[2022-09-10] MEDS ORDERED: OMEG-135 PO (21:08)
[2022-09-11] MEDS: THIAMINE 100 MG TABLET PO SCH (08:10)
[2022-09-11] MEDS: OMEGA-3/DHA/EPA/FISH OIL 1,000 MG CAPSULE PO SCH (08:10)
[2022-09-11] MEDS: NALTREXONE HCL 50 MG TABLET PO SCH (08:10)
[2022-09-11] MEDS: FOLIC ACID 1 MG TABLET PO SCH (08:10)
[2022-09-11] MEDS: MULTIVITAMINS WITH MINERALS, THERAPEUTIC TABLET PO SCH (08:11)
== END 2022-09-11 12:15 | disposition home or self-care (01) | DRG 885 ==
LOC: EMS 21:44 → 3EX 09-08 03:00
PROVIDERS: ADMIT Psychiatry & Neurology Psychiatry; ATTEND Psychiatry & Neurology Psychiatry
PROC: GZHZZZZ Group Psychotherapy (ICD-10-PCS; principal; 2022-09-08)
PROC: GZ51ZZZ Individual Psychotherapy, Behavioral (ICD-10-PCS; 2022-09-08)
DX: F20.9 Schizophrenia, unspecified (principal); D64.9 Anemia, unspecified; D72.829 Elevated white blood cell count, unspecified; E11.9 Type 2 diabetes mellitus without complications; F32.A Depression, unspecified; F41.1 Generalized anxiety disorder; F60.0 Paranoid personality disorder; I10 Essential (primary) hypertension; F15.10 Other stimulant abuse, uncomplicated; Z20.822 Contact with and (suspected) exposure to COVID-19; D75.839 Thrombocytosis, unspecified; E87.6 Hypokalemia; E66.01 Morbid (severe) obesity due to excess calories; Y90.9 Presence of alcohol in blood, level not specified; F10.11 Alcohol abuse, in remission; J44.9 Chronic obstructive pulmonary disease, unspecified; Z55.9 Problems related to education and literacy, unspecified; Z59.9 Problem related to housing and economic circumstances, unspecified; Z63.9 Problem related to primary support group, unspecified; Z65.3 Problems related to other legal circumstances; Z87.891 Personal history of nicotine dependence; Z88.8 Allergy status to other drugs, medicaments and biological substances; Z72.89 Other problems related to lifestyle; Z79.84 Long term (current) use of oral hypoglycemic drugs; Z68.33 Body mass index [BMI] 33.0-33.9, adult
CPT/HCPCS: 70496; 71045; 80048; 80053; 80061; 82962; 83036; 84439; 84443; 84484; 85025; 85610; 86592; 93005; 99291; G0378; G0480; J1200; J1630; J2060; J7050; Q9967; 36415-L1; 36415-TC; 70450; 70450-TC

== ENCOUNTER 2023-01-27 17:09 | Emergency (ER) | payer MEDICAID, OTHER ==
[~2023-01-27] VITALS: Ht 167.6 cm; Wt 90.9 kg
[~2023-01-27 17:09] MED LIST changes: +AMOX500C2 PO; -ARIP10TA38 PO; -ARIP10TA8 PO; -ESCI20TA87 PO; -HYDR-4584 PO; +IBUP-1493 PO; -METF-81 PO; -NALT50TA6 PO; +OLAN10TA26 PO
[2023-01-27 17:18] VITALS: BP 150/113; PULSE 106; RESP 16; TEMP 100.1
== END 2023-01-27 21:00 | disposition left against medical advice (07) ==
LOC: EMS 17:10
DX: M79.671 Pain in right foot (principal); Z53.21 Procedure and treatment not carried out due to patient leaving prior to being seen by health care provider
CPT/HCPCS: 99281; Z7502

== ENCOUNTER 2023-04-02 01:00 | Emergency (ER) | payer MEDICAID, OTHER ==
[~2023-04-02] VITALS: Ht 167.6 cm; Wt 77.2 kg
[2023-04-02 01:10] VITALS: TEMP 98.8
[2023-04-02 06:15] VITALS: BP 148/88; PULSE 84; RESP 16
== END 2023-04-02 06:54 | disposition home or self-care (01) ==
LOC: EMS 01:00
DX: F44.5 Conversion disorder with seizures or convulsions (principal); F41.9 Anxiety disorder, unspecified; F32.A Depression, unspecified; F20.9 Schizophrenia, unspecified; Z88.8 Allergy status to other drugs, medicaments and biological substances
CPT/HCPCS: 99291; Z7502

== ENCOUNTER 2023-04-21 04:00 | Inpatient (IN) | payer MEDICAID, OTHER ==
[~2023-04-21] VITALS: Ht 167.6 cm; Wt 88.0 kg
[2023-04-21 05:57] LABS: BASOPHILS % (AUTO) 0.9 % (0.0-2.0); EOSINOPHILS % (AUTO) 1.1 % (1.0-6.0); HEMATOCRIT 35.5 % (36-46); HEMOGLOBIN 11.5 g/dL (12.0-16.0); LYMPHOCYTES # (AUTO) 2.2 K/uL (1.0-4.8); LYMPHOCYTES % (AUTO) 21.2 % (22.0-44.0); MEAN CORPUSCULAR HEMOGLOBIN 26.5 pg (26.0-34.0); MEAN CORPUSCULAR HGB CONC 32.4 G/dL (31.0-37.0); MEAN CORPUSCULAR VOLUME 82 fL (80-100); MONOCYTES # (AUTO) 0.7 K/uL (0.1-1.0); MONOCYTES % (AUTO) 6.2 % (2.0-9.0); NEUTROPHILS # (AUTO) 7.4 K/uL (1.8-7.7); NEUTROPHILS % (AUTO) 70.6 % (40.0-70.0); PLATELET COUNT (AUTO) 391 K/uL (150-450); RED BLOOD CELL COUNT(AUTO) 4.34 MIL/uL (4.00-5.20); RED CELL DISTRIBUTION WIDTH 16.5 % (11.5-14.5); WHITE BLOOD COUNT (AUTO) 10.4 K/uL (4.5-11.0)
[2023-04-21 06:06] LABS: ANION GAP 8 mmol/L (8-16); CALCIUM, TOTAL 8.9 mg/dL (8.8-10.5); CARBON DIOXIDE 26 mmol/L (22-29); CHLORIDE 101 mmol/L (98-107); CREATININE 0.59 mg/dL (0.60-1.30); GLOMERULAR FILTR. RATE CALC > 60 mL/min (>60); GLUCOSE,RANDOM 101 mg/dL (70-110); POTASSIUM 4.1 mmol/L (3.5-5.1); SODIUM SERUM 135 mmol/L (136-145); UREA NITROGEN, BLOOD 9 mg/dL (7-18)
[2023-04-21 06:12] LABS: ALANINE AMINOTRANSFERASE 28 U/L (12-78); ALBUMIN 3.7 g/dL (3.4-5.0); ALKALINE PHOSPHATASE 117 U/L (46-116); ASPARTATE AMINOTRANSFERASE 24 U/L (15-37); BILIRUBIN,TOTAL 0.1 mg/dL (0.1-1.0); TOTAL PROTEIN, SERUM 8.3 g/dL (6.4-8.2)
[2023-04-21] MEDS ORDERED: HALOPERIDOL 5 MG TABLET PO PRN (06:45)
[2023-04-21 07:28] LABS: COVID AG,FIA SOURCE NASAL SWAB
[2023-04-21 07:36] LABS: APPEARANCE,URINE CLEAR (CLEAR); BILIRUBIN,URINE NEGATIVE (NEGATIVE); COLOR,URINE COLORLESS (YELLOW); GLUCOSE, URINE (UA) NEGATIVE (NEGATIVE); KETONES,URINE NEGATIVE (NEGATIVE); LEUKOCYTE ESTERASE ,URINE NEGATIVE (NEGATIVE); NITRATE,URINE NEGATIVE (NEGATIVE); OCCULT BLOOD,URINE NEGATIVE (NEGATIVE); PH,URINE 5.5 (5.0-8.0); PROTEIN,URINE TRACE mg/dL (NEGATIVE); SPECIFIC GRAVITIY, URINE 1.008 (1.003-1.030); UROBILINOGEN,URINE <=1.0 mg/dL (<=1.0)
[2023-04-21 07:37] LABS: PH,URINE DRUG SCREEN 5.5 (5.0-8.0)
[2023-04-21 07:43] LABS: ALCOHOL, URINE DRUG SCREEN NEGATIVE (NEGATIVE); AMPHET/METH SCREEN,URINE POSITIVE (NEGATIVE); BARBITURATE SCREEN, URINE NEGATIVE (NEGATIVE); BENZODIAZEPINES SCREEN,URINE NEGATIVE (NEGATIVE); CANNABINOID SCREEN,URINE NEGATIVE (NEGATIVE); COCAINE SCREEN,URINE NEGATIVE (NEGATIVE); METHADONE SCREEN, URINE NEGATIVE (NEGATIVE); OPIATE SCREEN,URINE NEGATIVE (NEGATIVE); PHENCYCLIDINE SCREEN,URINE NEGATIVE (NEGATIVE)
[2023-04-21 07:55] LABS: SARS-COV2 (COVID) ANTIGEN,FIA Negative (Negative)
[2023-04-21 08:03] LABS: ALCOHOL, BLOOD (SERUM) 33 mg/dL (0-10)
[2023-04-21 10:32] VITALS: BP 126/72; PULSE 81; RESP 17; TEMP 98; O2SAT 97
[2023-04-21] MEDS: OLANZapine 10 MG RAPDIS TABLET PO SCH ×2 (12:12→20:57)
[2023-04-21] MEDS: BACITRACIN 28 GM OINTMENT TP SCH (17:17)
[2023-04-21 20:03] VITALS: RESP 17
[2023-04-22] MEDS: OLANZapine 10 MG RAPDIS TABLET PO SCH ×2 (08:42→20:16)
[2023-04-22] MEDS: BACITRACIN 28 GM OINTMENT TP SCH ×2 (08:42→16:11)
[2023-04-22 09:42] VITALS: BP 115/70; PULSE 78; RESP 18; TEMP 97.8; O2SAT 98
[2023-04-22 22:35] VITALS: RESP 18
[2023-04-23] MEDS: BACITRACIN 28 GM OINTMENT TP SCH ×2 (08:32→17:03)
[2023-04-23] MEDS: OLANZapine 10 MG RAPDIS TABLET PO SCH ×2 (08:32→20:00)
[2023-04-23] MEDS: ZOLPIDEM TARTRATE 10 MG TABLET PO PRN (20:00)
[2023-04-23 21:16] VITALS: BP 135/84; PULSE 83; RESP 17; TEMP 97.8
[2023-04-24 08:37] VITALS: BP 118/79; PULSE 82; RESP 18; TEMP 98; O2SAT 97
[2023-04-24] MEDS: LORazepam 2 MG TABLET PO PRN ×2 (08:45→16:05)
[2023-04-24] MEDS: OLANZapine 10 MG RAPDIS TABLET PO SCH ×2 (08:45→20:13)
[2023-04-24] MEDS: BACITRACIN 28 GM OINTMENT TP SCH ×2 (08:46→16:05)
[2023-04-24] MEDS: ZOLPIDEM TARTRATE 10 MG TABLET PO PRN (20:13)
[2023-04-25 01:37] VITALS: RESP 18
[2023-04-25 08:36] VITALS: RESP 16
[2023-04-25] MEDS: BACITRACIN 28 GM OINTMENT TP SCH ×3 (09:00→10:07)
[2023-04-25] MEDS: OLANZapine 10 MG RAPDIS TABLET PO SCH ×2 (09:55→20:55)
[2023-04-26 01:39] VITALS: RESP 18
[2023-04-26 08:28] VITALS: RESP 16
[2023-04-26] MEDS: BACITRACIN 28 GM OINTMENT TP SCH ×3 (09:00→17:00)
[2023-04-26] MEDS: OLANZapine 10 MG RAPDIS TABLET PO SCH ×2 (09:01→20:55)
[2023-04-26 21:15] VITALS: BP 121/74; PULSE 84; RESP 16; TEMP 97.8; O2SAT 98
[2023-04-27 08:16] VITALS: BP 138/77; PULSE 84; RESP 18; TEMP 98.2; O2SAT 99
[2023-04-27] MEDS: LORazepam 2 MG TABLET PO PRN ×2 (09:06→14:12)
[2023-04-27] MEDS: OLANZapine 10 MG RAPDIS TABLET PO SCH ×2 (09:06→20:00)
[2023-04-27] MEDS: BACITRACIN 28 GM OINTMENT TP SCH ×2 (09:15→16:04)
[2023-04-27 21:17] VITALS: BP 110/60; PULSE 77; RESP 16; TEMP 98.4; O2SAT 98
[2023-04-28 08:32] VITALS: BP 127/76; PULSE 94; RESP 16; TEMP 98.6; O2SAT 98
[2023-04-28] MEDS: BACITRACIN 28 GM OINTMENT TP SCH (08:38)
[2023-04-28] MEDS: OLANZapine 10 MG RAPDIS TABLET PO SCH (08:38)
[2023-04-28] MEDS ORDERED: OLAN10TA26 PO (08:47)
== END 2023-04-28 12:34 | disposition home or self-care (01) | DRG 750 ==
LOC: EMS 04:01 → B3A 08:20
PROVIDERS: ADMIT Psychiatry & Neurology Child & Adolescent Psychiatry; ATTEND Psychiatry & Neurology Child & Adolescent Psychiatry
DX: F20.0 Paranoid schizophrenia (principal); R45.851 Suicidal ideations; D64.9 Anemia, unspecified; F41.9 Anxiety disorder, unspecified; E66.01 Morbid (severe) obesity due to excess calories; F15.20 Other stimulant dependence, uncomplicated; Z20.822 Contact with and (suspected) exposure to COVID-19; K21.9 Gastro-esophageal reflux disease without esophagitis; F10.90 Alcohol use, unspecified, uncomplicated; K59.00 Constipation, unspecified; Z78.1 Physical restraint status; Z88.8 Allergy status to other drugs, medicaments and biological substances; Z68.31 Body mass index [BMI] 31.0-31.9, adult; Z59.00 Homelessness unspecified
CPT/HCPCS: 80053; 80307; 81003; 84703; 85025; 99285; G0480

== ENCOUNTER 2023-05-24 18:14 | Emergency (ER) | payer MEDICAID, OTHER ==
[~2023-05-24 18:14] MED LIST changes: -AMOX500C2 PO; -IBUP-1493 PO
[2023-05-24 21:48] LABS: BASOPHILS % (AUTO) 0.9 % (0.0-2.0); EOSINOPHILS % (AUTO) 0.9 % (1.0-6.0); HEMATOCRIT 34.2 % (36-46); HEMOGLOBIN 11.2 g/dL (12.0-16.0); LYMPHOCYTES # (AUTO) 3.7 K/uL (1.0-4.8); LYMPHOCYTES % (AUTO) 30.8 % (22.0-44.0); MEAN CORPUSCULAR HEMOGLOBIN 26.9 pg (26.0-34.0); MEAN CORPUSCULAR HGB CONC 32.8 G/dL (31.0-37.0); MEAN CORPUSCULAR VOLUME 82 fL (80-100); MONOCYTES # (AUTO) 0.8 K/uL (0.1-1.0); NEUTROPHILS # (AUTO) 7.3 K/uL (1.8-7.7); NEUTROPHILS % (AUTO) 60.4 % (40.0-70.0); PLATELET COUNT (AUTO) 398 K/uL (150-450); RED BLOOD CELL COUNT(AUTO) 4.17 MIL/uL (4.00-5.20)
[2023-05-24 22:04] LABS: ALCOHOL, BLOOD (SERUM) < 3 mg/dL (0-10)
[2023-05-24 22:11] LABS: ANION GAP 11 mmol/L (8-16); CALCIUM, TOTAL 9.3 mg/dL (8.8-10.5); CARBON DIOXIDE 24 mmol/L (22-29); CHLORIDE 101 mmol/L (98-107); CREATININE 0.59 mg/dL (0.60-1.30); GLOMERULAR FILTR. RATE CALC > 60 mL/min (>60); GLUCOSE,RANDOM 105 mg/dL (70-110); POTASSIUM 3.9 mmol/L (3.5-5.1); SODIUM SERUM 136 mmol/L (136-145); UREA NITROGEN, BLOOD 16 mg/dL (7-18)
[2023-05-24 22:17] LABS: ALANINE AMINOTRANSFERASE 19 U/L (12-78); ALBUMIN 3.7 g/dL (3.4-5.0); ALKALINE PHOSPHATASE 92 U/L (46-116); ASPARTATE AMINOTRANSFERASE 14 U/L (15-37); BILIRUBIN,TOTAL 0.1 mg/dL (0.1-1.0); LIPASE 64 U/L (16-77); TOTAL PROTEIN, SERUM 7.9 g/dL (6.4-8.2)
[2023-05-24 22:43] VITALS: BP 167/107; RESP 20
[2023-05-24] MEDS ORDERED: KETOROLAC TROMETHAMINE 30 MG/ML VIAL IVP ONE (23:00)
[2023-05-24] MEDS ORDERED: SODIUM CHLORIDE 0.9% 1,000 ML IV ONE (23:00)
[2023-05-25 00:21] VITALS: TEMP 98.1
[2023-05-25 01:07] LABS: COVID AG,FIA SOURCE NASAL SWAB
[2023-05-25 01:13] LABS: APPEARANCE,URINE CLEAR (CLEAR); BILIRUBIN,URINE NEGATIVE (NEGATIVE); COLOR,URINE YELLOW (YELLOW); GLUCOSE, URINE (UA) TRACE mg/dL (NEGATIVE); KETONES,URINE TRACE mg/dL (NEGATIVE); LEUKOCYTE ESTERASE ,URINE NEGATIVE (NEGATIVE); NITRATE,URINE NEGATIVE (NEGATIVE); OCCULT BLOOD,URINE NEGATIVE (NEGATIVE); PH,URINE 5.5 (5.0-8.0); PROTEIN,URINE 30-70 mg/dL (NEGATIVE); SPECIFIC GRAVITIY, URINE 1.042 (1.003-1.030); UROBILINOGEN,URINE <=1.0 mg/dL (<=1.0)
[2023-05-25 01:24] LABS: PH,URINE DRUG SCREEN 5.5 (5.0-8.0)
[2023-05-25 01:33] LABS: ALCOHOL, URINE DRUG SCREEN NEGATIVE (NEGATIVE); AMPHET/METH SCREEN,URINE POSITIVE (NEGATIVE); BARBITURATE SCREEN, URINE NEGATIVE (NEGATIVE); BENZODIAZEPINES SCREEN,URINE NEGATIVE (NEGATIVE); CANNABINOID SCREEN,URINE NEGATIVE (NEGATIVE); COCAINE SCREEN,URINE NEGATIVE (NEGATIVE); METHADONE SCREEN, URINE NEGATIVE (NEGATIVE); OPIATE SCREEN,URINE NEGATIVE (NEGATIVE); PHENCYCLIDINE SCREEN,URINE NEGATIVE (NEGATIVE)
[2023-05-25 01:36] LABS: SARS-COV2 (COVID) ANTIGEN,FIA Negative (Negative)
[2023-05-25] MEDS ORDERED: IBUP-1492 PO (03:28)
== END 2023-05-25 04:02 | disposition home or self-care (01) ==
LOC: EMS 18:16
DX: F15.10 Other stimulant abuse, uncomplicated (principal); R10.32 Left lower quadrant pain; N83.202 Unspecified ovarian cyst, left side; Z88.8 Allergy status to other drugs, medicaments and biological substances; Z20.822 Contact with and (suspected) exposure to COVID-19
CPT/HCPCS: 99284; 87426; 80053; 83690; 84703; 85025; 36415; 80307; 81003; 74176; G0480

== ENCOUNTER 2023-05-28 21:30 | Emergency (ER) | payer OTHER ==
[~2023-05-28] VITALS: Ht 172.7 cm; Wt 90.9 kg
[~2023-05-28 21:30] MED LIST changes: +IBUP-1492 PO
[2023-05-28 21:41] VITALS: TEMP 98.6
[2023-05-29 02:35] VITALS: BP 145/100; PULSE 79; RESP 20
[2023-05-29] MEDS ORDERED: IBUPROFEN 600 MG TABLET PO ONE (03:15)
== END 2023-05-29 03:35 | disposition home or self-care (01) ==
LOC: EMS 21:37
DX: M54.50 Low back pain, unspecified (principal); Z88.8 Allergy status to other drugs, medicaments and biological substances
CPT/HCPCS: 99282; Z7502; Z7610